=== PATIENT | female | born 1945 | race Caucasian/White ===

== ENCOUNTER 2019-07-12 06:18 | Inpatient (IN) ==
--- NOTE | 2019-06-21 12:55 | PAT Medication Instructions ---
Medication Instructions Date of Service June 21, 2019 Home Medications Glucosamine Chondroitin See Rx Instructions .ROUTE .COMPLEX Lutein See Rx Instructions Vitamin D3 500 mcg PO DAILY calcium carbonate-vitamin D3 [Calcium 600 + D(3)] 2 cap PO DAILY cyanocobalamin (vitamin B-12) [Vitamin B-12] 2,500 mcg SUBLINGUAL DAILY multivitamin 1 cap PO DAILY omeprazole 20 mg PO QAM STOP taking 2 weeks before surgery (or as soon as possible if surgery is within 2 weeks) Glucosamine Chondroitin See Rx Instructions .ROUTE .COMPLEX Lutein See Rx Instructions DO NOT take the morning of surgery Vitamin D3 500 mcg PO DAILY calcium carbonate-vitamin D3 [Calcium 600 + D(3)] 2 cap PO DAILY cyanocobalamin (vitamin B-12) [Vitamin B-12] 2,500 mcg SUBLINGUAL DAILY multivitamin 1 cap PO DAILY Take morning of surgery With a small sip of water, OTHERWISE NOTHING TO EAT OR DRINK AFTER MIDNIGHT: omeprazole 20 mg PO QAM Other Notes If you have any questions please call us at [phone] or [phone] or [phone] or [phone]
--- NOTE | 2019-06-21 12:59 | Anesthesiology Consultation ---
Date of Service June 21, 2019 Assessment & Plan (1) Encounter for pre-operative examination: - Patient requests: Patient prefers to go by "Yudith"/would respond better to this in the recovery period. Patient requests that she have a deeper sedation/does not hear anything during surgery if possible. Chart Review Chart Review: Pending: Refer to Additional Notes / Consult section (pending preop testing (labs, EKG, CXR)) and Patient seen in Pre Admission Testing Teaching & Discussion Pre-Anesthesia Teaching/Discussion Notes: Instructed NPO after midnight before surgery,except medications with 15 cc of water. Medication instructions provided according to the PAT guidelines. History Surgery Operation Date: 07/12/19 08:50 Proposed Procedures p Right Total Knee Arthroplasty - Bob Chan MD Height/Weight Height: 5 ft 1.5 in Weight: 80 kg Allergies Allergy/AdvReac Type Severity Reaction Status Date / Time NARCOTICS AdvReac Unknown DYSPEPSIA Uncoded 06/21/19 12:59 (WITH "STRONG" PAIN MEDICATIONS) Medications Home Medications Medication Instructions Recorded Confirmed Last Taken Glucosamine Chondroitin See Rx Instructions .ROUTE .COMPLEX 06/18/19 06/18/19 Unknown Lutein See Rx Instructions .ROUTE .COMPLEX 06/18/19 06/18/19 Unknown Vitamin D3 500 mcg PO DAILY 06/18/19 06/18/19 Unknown calcium carbonate-vitamin D3 2 cap PO DAILY 06/18/19 06/18/19 Unknown [Calcium 600 + D(3)] cyanocobalamin (vitamin B-12) 2,500 mcg SUBLINGUAL DAILY 06/18/19 06/18/19 Unknown [Vitamin B-12] multivitamin 1 cap PO DAILY 06/18/19 06/18/19 Unknown omeprazole 20 mg PO QAM 06/18/19 06/18/19 06/18/19 Past Medical History Medical History Crohn's disease s/p colectomy; current stoma Duodenal ulcer remote hx- reason for PPI History of blood transfusion post-op () History of kidney stones Obesity Osteoarthritis Exercise / Class Metabolic Activity III < 4 Walking/Shop/Light housework Past Family History Family History Aunt Family history of diabetes mellitus Past Surgical History Surgical History History of colonoscopy History of intestinal surgery HX ABSCESS- HAD SURGICAL RE-POSITIONING OF STOMA FROM RIGHT TO LEFT SIDE (CURRENTLY PRESENT ON LEFT SIDE) History of total colectomy TO ILEUM; OCCASIONAL PACKING NEEDED SINCE SURGERY DONE IN )-- SURGEON MADE AWARE History of urologic surgery 2/2 KIDNEY STONE Past Anesthesia History No Hx of Anesthesia Complications and No Family Hx of Anesthesia Complications History of PONV No Hx of PONV and No Hx of Motion Sickness Social History Smoking Status: Never smoker Do You Dip or Chew Tobacco: No Hx Alcohol Use: No substance use type: does not use Review of Systems Patient denies chest pain, shortness of breath, reflux, cough, wheezing, palpitations. Physical Exam Vital Signs VITALS BP 138/78 (manual on right) P 87 TEMP 98.0 SP02 97%RA RESP 16 PHYSICAL Full neck and c-spine range of motion. Full TMJ range of motion. TMD 3.5 finger breaths Mallampati Score 3 Dentition: upper front right "enamel wearing," missing sides/molars Lungs: clear throughout to auscultation Cardiac: regular rate and rhythm, no murmurs noted Spine: normal Carotid arteries: negative bruit Extremities: no edema
--- NOTE | 2019-06-21 13:57 | XRay Report ---
XR chest Pre-admission PA/Lat CLINICAL HISTORY: Preoperative chest COMPARISON STUDY: No previous studies for comparison. FINDINGS: The cardiac and mediastinal contours are normal. There is no evidence of focal pulmonary co nsolidation. There is no evidence of failure. No pleural effusions are visualized.[There is a promine nt left cardiophrenic angle fat pad IMPRESSION: No active disease in the chest. Electronically signed by: Patricio Gary M.D. 06/21/2019 1:55 PM
[2019-06-21 15:50] LABS: Basophils # (auto) 0.01 K/uL (0-0.2); Basophils % (auto) 0.1 %; Eosinophils # (auto) 0.03 K/uL (0-0.5); Eosinophils % (auto) 0.3 %; Hematocrit (blood only) 37.7 % (37-47); Hemoglobin 12.1 g/dL (12.0-16.0); Immature Granulocytes # (auto) 0.02 K/uL (0.00-0.02); Immature Granulocytes % (auto) 0.2 %; Lymphocytes # (auto) 2.05 K/uL (1.2-3.4); Lymphocytes % (auto) 22.7 %; Mean Corpuscular Hemoglobin 25.7 pg (25-34); Mean Corpuscular Hgb Conc 32.1 g/dL (32-36); Mean Corpuscular Volume 80.2 fL (80-100); Mean Platelet Volume 10.3 fL (7.4-10.4); Monocytes # (auto) 0.37 K/uL (0.11-0.59); Monocytes % (auto) 4.1 %; Neutrophils # (auto) 6.57 K/uL (1.4-6.5); Neutrophils % (auto) 72.6 %; Platelet Count 280 K/uL (130-400); RDW Coefficient of Variation 14.1 % (11.5-14.5); RDW Standard Deviation 40.9 fL (36.4-46.3); White Blood Count 9.05 K/uL (4.8-10.8)
[2019-06-21 15:58] LABS: BUN Creatinine Ratio 17.1 (10-20); Calcium 9.2 mg/dl (8.5-10.1); Creatinine Clr Calc Pharmacy 45.2 ml/min; Est GFR (African American) 58.7; Est GFR (Non-African American) 50.7; Potassium 3.6 mmol/L (3.5-5.1)
[2019-06-21 16:06] LABS: Partial Thromboplastin Ratio 1.1; Partial Thromboplastin Time 28.5 Seconds (21.0-31.0); Prothrombin Time 10.6 Seconds (9.0-12.0)
--- NOTE | 2019-07-06 19:42 | History and Physical Report ---
DATE OF ADMISSION: 07/12/2019 CHIEF COMPLAINT: Persistent right knee pain and discomfort. HISTORY OF PRESENT ILLNESS: The patient is a 73-year-old female who presents for surgical treatment of her right knee. She has got a long history of right knee pain and discomfort that has gradually gotten worse over time. This initially responded pretty well with conservative treatment including medicines and injections. This became less successful over time. She has got global pain. A little bit more medial than anywhere else, but some pain throughout. The more she walks, the more it hurts. She has difficulty going up and down steps. The shots only helped for a couple of weeks. She now would like to have her right knee replaced. PAST MEDICAL HISTORY: Includes: 1. Kidney stones. 2. Mild obesity with BMI of 33. 3. Unspecified colon abscess in the past with a colectomy and stoma placement without further problems. 4. Crohn's disease, status post colectomy. PAST SURGICAL HISTORY: Includes: 1. Total colectomy. 2. Kidney stone removal. ALLERGIES: PAIN MEDICINES, WHICH CAUSE NAUSEA. Not true allergies. CURRENT MEDICINES: Include: 1. Omeprazole once a day. 2. Restasis eye drops. SOCIAL HISTORY: A 73-year-old female. She is . Three children. Rare alcohol intake. No tobacco or drug use. FAMILY HISTORY: Noncontributory. REVIEW OF HISTORY: Negative for diabetes, neurologic problems, vascular problems or bleeding disorders. Does have a history of Crohn's disease and had a portion of her colon removed and she has got a stoma in place. No subsequent problems with infection. PHYSICAL EXAMINATION: GENERAL: Shows a pleasant, healthy, middle-aged female. She looks to be in pretty good health. HEENT: Benign. NECK: Supple, no lymphadenopathy. LUNGS: Clear to auscultation. HEART: Has a regular rate and rhythm. ABDOMEN: Soft, nontender, nondistended. EXTREMITIES: Grossly neurovascularly intact except as follows: Examination of the right knee reveals the patient walks independently. She does have a slight limp on her right side. She has got varus alignment to her knee. She is tender over the medial joint line. Small knee effusion. Range of motion is 5-125. There is no instability. No pain with hip motion. X-RAYS: X-ray of the right knee is reviewed. It shows advanced right knee medial compartment DJD. She has complete loss of medial joint space. She has subchondral sclerosis. She has got diffuse osteopenia. ASSESSMENT: A 73-year-old white female with advanced right knee degenerative joint disease, unresponsive to conservative care. She would like to have her knee replaced. She does seem to be osteopenic, likely related to her Crohn's disease and colectomy. PLAN: We are going to take her to the operating room and do right total knee replacement. The risks and benefits of this procedure were explained to the patient including but not limited to DVT, PE, , infection, neurological injury, vascular injury, bleeding problem, pain, limited range of motion, stiffness, failure to relieve her symptoms, incomplete relief of symptoms, need for further surgery in the future, fracture, leg length inequality, nerve palsy, dislocation, etc. The patient understands and desires to proceed. Informed consent was obtained. The patient has limited medicine intake due to her Crohn's disease. She can take half of Percocet at a time and we will try and stick to limited hydrocodone and Tylenol as much as possible. We will limit NSAIDs due to her GI issues. As far as discharge plans, she is planning to be discharged to home using [facility] home health program. Her daughter is going to stay with her.
[~2019-07-12 06:18] MED LIST: ACETAMINOPHEN 500 MG TAB PO SCH; BUPIVACAINE LIPOSOME/PF 266 MG, BUPIVACAINE/EPINEPHRINE 50 ML, SODIUM CHLORIDE 0.9% 30 ... INFIL SCH; CEFAZOLIN 2000MG 2,000 MG/15 ML SYR IV SCH; FAMOTIDINE 20 MG TAB PO SCH; GABAPENTIN 300 MG CAP PO SCH; LR 500ML BOLUS, THEN 15ML/HR IV SCH; LR 60ML/HR IV SCH; METOCLOPRAMIDE HCL 10 MG TABLET PO SCH
[2019-07-12] MEDS ORDERED: BUPIVACAINE 0.5 % 5 MG/1 ML PF 10ML VIAL ONE ×2 (06:27→06:28)
[2019-07-12] MEDS ORDERED: TRANEXAMIC ACID 1,000 MG **IV Intra-op IV SCH (06:30)
--- NOTE | 2019-07-12 06:56 | History & Physical Bridge Note ---
Date of Service July 12, 2019 History & Physical Bridge Note I have examined the patient, reviewed the History & Physical and in the interval since the performance of the History & Physical I have noted the following changes of clinical significance: no changes noted
[2019-07-12] MEDS ORDERED: MIDAZOLAM HCL 1 MG/ML 2ML VIAL ONE (07:32)
[2019-07-12] MEDS ORDERED: fentaNYL citrate 100 MCG/2 ML VIAL ONE (07:32)
[2019-07-12] MEDS ORDERED: ePHEDrine sulfate 50 MG/ML AMP IV PRN (07:54)
[2019-07-12] MEDS ORDERED: fentaNYL citrate 100 MCG/2 ML VIAL IV PRN (07:54)
[2019-07-12] MEDS ORDERED: ONDANSETRON INJ 2 MG/ML 2 ML VIAL IV PRN (07:54)
[2019-07-12] MEDS ORDERED: ATROPINE SULFATE 0.1 MG/ML 10ML SYR IV PRN (07:54)
[2019-07-12] MEDS ORDERED: BUPIVACAINE LIPOSOME 1.3% 266 MG/20 ML VIAL ONE (08:51)
[2019-07-12] MEDS ORDERED: BUPIVACAINE/EPINEPHRINE 0.25% 1:200,000 30 ML VIAL ONE (08:51)
[2019-07-12] MEDS ORDERED: BACITRACIN INJ 50,000 UNIT VIAL ONE (08:51)
[2019-07-12] MEDS ORDERED: SODIUM CHLORIDE 0.9% PF 50 ML VIAL ONE (08:51)
[2019-07-12] MEDS ORDERED: PROPOFOL IV EMULSION 10 MG/ML 20 ML VIAL IV ONE (10:41)
--- NOTE | 2019-07-12 10:44 | Post Operative Brief Note ---
PG Immediate Post Op with CF Date of Surgery July 12, 2019 Pre & Post Diagnosis Operation Date: 07/12/19 08:50 Pre-Op Diagnosis: Right Knee Advanced Degenerative Joint Disease Post-Op Diagnosis: Right Knee Advanced Degenerative Joint Disease Procedure Operation Date: 07/12/19 08:50 Actual Procedures p Right Total Knee Arthroplasty(Right) - Bob Chan MD Surgeon Bob Chan MD Crane Ladle Person Allison, PAC Estimated Blood Loss 50 Findings Consistent with Post-Op Diagnosis Fluids 1400 cc Specimens Specimen Description: A. Right Knee Bone and Tissue Drains Espinal Catheter (A 16 [place] espinal catheter was inserted by REY Hanley, without difficulty, clear yellow urine obtained, output to be monitored by Anesthesia.) Anesthesia Type Spinal MAC Complications none Disposition Accompanied Patient To Recovery: No Disposition: Recovery Room
--- NOTE | 2019-07-12 11:09 | XRay Report ---
TWO VIEWS RIGHT KNEE CLINICAL HISTORY: Postoperative examination. FINDINGS: AP and crosstable lateral portable views of the right knee are obtained. A right knee arthr oplasty is in near anatomic alignment. There has been undersurface remodeling of the patella. No acut e fracture is seen. There are expected postoperative changes around the knee including skin clips, so ft tissue edema, and subcutaneous gas. IMPRESSION: Expected postoperative changes status post right knee arthroplasty. No acute fracture is seen. Electronically signed by: Gunnar Dixon M.D. 07/12/2019 11:08 AM
--- NOTE | 2019-07-12 11:34 | Anesthesiology Progress Note ---
Date of Service July 12, 2019 Anesthesia Post Procedure Vital Signs Vital Signs: Temp Pulse Pulse Resp BP Pulse Ox 07/12/19 11:29 99.3 F 70 17 136/68 94 07/12/19 11:20 99.3 F 71 24 131/66 96 07/12/19 11:10 69 16 126/62 95 07/12/19 11:00 72 21 127/63 98 07/12/19 10:52 98.1 F 72 16 127/59 L 99 07/12/19 06:53 97.7 F 77 18 171/70 H 100 Transfer of Care Handoff Completed per policy Notes Mental Status: alert / awake / arousable and participated in evaluation Patient Amnestic to Procedure: Yes Nausea / Vomiting: adequately controlled Pain: adequately controlled Airway Patency, RR, SpO2: stable & adequate BP & HR: stable & adequate Hydration State: stable & adequate Neuraxial Anesthesia: was administered and sensory block is resolving Anesthetic Complications: no major complications apparent and Pt Satisfied with anesthetic care
[2019-07-12] MEDS ORDERED: METOCLOPRAMIDE HCL INJ 5 MG/ML 2 ML VIAL IV PRN (11:56)
[2019-07-12] MEDS ORDERED: TRAMADOL HCL 50 MG TABLET PO PRN (11:56)
[2019-07-12] MEDS ORDERED: MAGNESIUM HYDROXIDE SUSP 30 ML UDC PO PRN (11:56)
[2019-07-12] MEDS ORDERED: ALUMINUM/MAGNESIUM SUSP 30 ML UDC PO PRN (11:56)
[2019-07-12] MEDS ORDERED: GLUCOSAMINE CHONDROITIN SCH (11:56)
[2019-07-12] MEDS ORDERED: HYDROmorphone INJ 0.5 MG/0.5 ML SYR IV PRN (11:56)
[2019-07-12] MEDS ORDERED: bisacodyL 10 MG SUPP PR PRN (11:56)
[2019-07-12] MEDS ORDERED: LUTEIN SCH (11:56)
[2019-07-12] MEDS ORDERED: NALOXONE HCL 0.4 MG/1 ML VIAL/CARP IV PRN (11:56)
[2019-07-12] MEDS: KETOROLAC TROMETHAMINE 15 MG/ML VIAL IV SCH ×4 (13:24→23:40)
--- NOTE | 2019-07-12 13:27 | Progress Note ---
DATE: 07/12/2019 SUBJECTIVE: A 73-year-old white female postop from a right knee replacement. She is doing well. Just starting to get the sensation and function back in her legs. Her feet feel a little tingly. No pain. No chest pain or shortness of breath. Not feeling dizzy or lightheaded. OBJECTIVE: VITAL SIGNS: Temperature 36.4. Vital signs stable. GENERAL: Physical examination shows a pleasant, middle-aged female. She is sitting up in bed and talking to her daughter. She looks pretty comfortable. LUNGS: Clear to auscultation. HEART: Has a regular rate and rhythm. ABDOMEN: Soft, nontender, nondistended. EXTREMITIES: Grossly neurovascularly intact except as follows: Examination of the right lower extremity reveals the leg to be well aligned. Dressing is clean, dry and intact. She can just start to bend her toes a little bit. She has brisk refill and good distal pulse. X-RAYS: X-rays of the right knee from recovery room reviewed. It shows a cemented posterior stabilized total knee arthroplasty. Components look to be in good position. No signs of problems. It is a bit of an oblique film. ASSESSMENT: 73-year-old white female postop from right knee replacement, doing pretty well. Pain is controlled. She is just starting to get the function back in her legs. PLAN: 1. DVT prophylaxis including thigh-high TEDs, SCDs, and aspirin twice a day. 2. PT/OT. Weight bear as tolerated. Right total knee protocol. 3. Pain control, doing well with current pain regimen. 4. IV antibiotics x24 hours. 5. Disposition: Plan to discharge to home likely with some home health and her daughter's assistance once medically stable.
[2019-07-12] MEDS ORDERED: ACETAMINOPHEN 500 MG TAB PO SCH (14:00)
[2019-07-12] MEDS ORDERED: Nursing to Pharmacy Communication ONE (16:41)
[2019-07-12] MEDS ORDERED: TRANEXAMIC ACID 1,000 MG in 0.9 % SODIUM CHLORIDE 100 ML IV SCH (16:46)
[2019-07-12] MEDS: SODIUM CHLORIDE 0.9% 1000ML 1,000 ML IV SCH ×2 (16:53→21:59)
[2019-07-12] MEDS: ONDANSETRON INJ 2 MG/ML 2 ML VIAL IV PRN (17:02)
--- NOTE | 2019-07-12 17:21 | Operative Report ---
DATE OF OPERATION: 07/12/2019 SURGEON: Bob Chan MD NEON PUMPER: REY Stallings PREOPERATIVE DIAGNOSIS: Right knee degenerative joint disease. POSTOPERATIVE DIAGNOSIS: Right knee degenerative joint disease. PROCEDURE PERFORMED: Right cemented posterior stabilized total knee arthroplasty. COMPLICATIONS: None. ESTIMATED BLOOD LOSS: 50 mL. FLUID REPLACEMENT: 1400 mL crystalloid fluid replacement. TOURNIQUET TIME: 46 minutes at 300 mmHg. ANESTHESIA: Spinal with adductor canal block. DRAINS: None. SPECIMENS: Right knee sent for pathology. OPERATIVE INDICATIONS: The patient is a 73-year-old female who has had a several year history of increasing right knee pain and discomfort. She has been through extensive conservative treatment which became less successful over time. X-rays show advanced medial compartment arthritis. She elected to proceed with operative treatment. OPERATIVE FINDINGS: Operative findings revealed advanced right knee DJD with extensive grade 4 changes in the medial femoral condyle and medial tibial plateau. She had eburnation of the medial femoral condyle and anterior medial tibial plateau. She had varus deformity to her knee. Osteophytes in the medial compartment. The rest of the knee looked pretty well preserved for her age. OPERATIVE IMPLANTS: Operative implants consisted of: 1. Biomet Vanguard size 62.5 right posterior stabilized femoral component. 2. Biomet size 63 tibial tray. 3. A 12 mm posterior stabilized polyethylene insert. 4. A 28 x 8 all poly patella. OPERATIVE PROCEDURE: The patient was taken to the operating room, identified and placed on the operating table in supine position. All contact areas were appropriately padded. IV antibiotics were provided by anesthesia team. A Kim catheter was placed in sterile fashion. Right thigh tourniquet was then placed and the right lower extremity was then prepped and draped in usual sterile fashion. The right leg was elevated and exsanguinated with an Esmarch and tourniquet was placed at 300 mmHg. An anterior approach of the right knee was then performed through a longitudinal incision centered over the patella. Sharp dissection was carried through subcutaneous tissues down to the level of the extensor mechanism. Medial parapatellar arthrotomy incision was made. Some subperiosteal dissection was carried out medially. The fat pad resected from beneath the patellar tendon. The lateral patellofemoral ligament was released. The patella was everted and knee was flexed. The osteophytes were taken off the distal femur. The ACL and PCL were then released from the distal femur and the tibia subluxated anteriorly. External tibial alignment jig was then placed in the anterior face of the tibia and adjusted 14 mm medially. Proximal tibial cut was made to remove about 2 mm of bone from most deficient aspect of the medial tibial plateau. The tibia was then sized to a size 63. Some osteophytes were taken off medial and posteromedially. Attention was then drawn to the femur. The distal femur was entered with a sharp drill. Intramedullary canal was suctioned. A right 5-degree valgus cutting guide was placed. Distal femoral cutting block was pinned in place. Distal femoral cut was made to take an additional 3 mm of bone off distal femur. Femur was then sized to a size 62.5. We did downsize this slightly. The AP cutting block was pinned parallel to the epicondylar axis, which was 4 degrees of external rotation. The anterior cut, anterior chamfer cut, posterior cut, posterior chamfer cuts were made. Box cutting guide was placed and adjusted slightly lateral and the box cut was made. The knee was flexed. The remnants of the medial and lateral menisci were excised. The osteophytes were taken off the posterior aspect of the femur. Trial femoral component was placed. Tibial tray was pinned in maximum external rotation and the drill and stem punch were used to create defect in proximal tibia for the tibial tray. The knee was then trialed and the 12 mm insert fit most appropriately. Attention was then drawn to the patella. The patella was cleaned of all soft tissues. Patella thickness measured 20 mm in thickness, it was cut down to 13. It was sized to a size 28 patella. Lug holes were drilled for a 28 patella. Lateral osteophyte was removed. Patella button was placed. Knee was taken through range of motion, patella tracked nicely with no thumbs test. Attention was then drawn toward placement of permanent components. All trial components were removed. A bone plug was placed in the distal femur to limit blood loss. A double batch of Palacos G cement was mixed. Biomet Vanguard size 62.5 right posterior stabilized femoral component, size 63 tibial tray, 12 mm posterior stabilized polyethylene insert, and a 28 x 8 all poly patella then cemented in place. Knee was brought out into full extension until cement hardened. A final cement check was then performed. Pericapsular tissues were injected with a total of 100 mL of combination of 20 mL of Exparel, 30 mL of normal saline, 50 mL of 0.25% Marcaine with epinephrine. The patient did receive 1 gram of tranexamic acid. The tourniquet was then let down for final tourniquet time 46 minutes. Hemostasis was assured with use of electrocautery. The extensor mechanism was then closed with combination of #1 PDS suture and #1 Vicryl suture in a [id number] fashion. Extensor mechanism was checked and found to be intact. The subcutaneous tissue was then closed with #2 Dexon suture in a buried interrupted fashion. Skin was closed with skin lucy. Leg was then cleaned, dried and a sterile dressing of Xeroform, 4 x 4, sterile cast padding and Jose bandage were applied. The patient then transferred to the recovery room in stable condition. The patient tolerated the procedure well with no complications. All needle and sponge counts were correct at the end of the operation. I attest to the content of the Intraoperative Record and any orders documented therein. Any exception s are noted below.
[2019-07-12] MEDS: ASCORBIC ACID 500 MG TAB PO SCH (18:45)
[2019-07-12] MEDS: FERROUS GLUCONATE 324 MG TAB PO SCH (18:45)
[2019-07-12] MEDS: ACETAMINOPHEN SOLN 500 MG/15.62 ML UDP PO SCH (18:46)
[2019-07-12] MEDS: CEFAZOLIN 2000MG 2,000 MG/15 ML SYR IV SCH ×2 (19:00→23:40)
[2019-07-12] MEDS ORDERED: ASPIRIN 81 MG ECTAB PO SCH (21:00)
[2019-07-12] MEDS: ASPIRIN 81 MG CHEW PO SCH (21:56)
[2019-07-12] MEDS: DOCUSATE SODIUM 100 MG CAP PO SCH (21:57)
[2019-07-12] MEDS: SENNA 8.6 MG TAB PO SCH (21:57)
[2019-07-13] MEDS: KETOROLAC TROMETHAMINE 15 MG/ML VIAL IV SCH ×3 (05:20→17:59)
[2019-07-13] MEDS: ACETAMINOPHEN SOLN 500 MG/15.62 ML UDP PO SCH ×3 (05:21→21:12)
[2019-07-13 06:29] LABS: Hematocrit (blood only) 30.7 % (37-47); Mean Corpuscular Hgb Conc 32.6 g/dL (32-36); Mean Corpuscular Volume 79.7 fL (80-100); Mean Platelet Volume 9.7 fL (7.4-10.4); Platelet Count 193 K/uL (130-400); RDW Coefficient of Variation 14.4 % (11.5-14.5); RDW Standard Deviation 41.2 fL (36.4-46.3); Red Blood Count 3.85 M/uL (4.2-5.4); White Blood Count 8.26 K/uL (4.8-10.8)
[2019-07-13 06:52] LABS: BUN Creatinine Ratio 13.3 (10-20); Calcium 8.1 mg/dl (8.5-10.1); Creatinine Clr Calc Pharmacy 54.8 ml/min; Est GFR (Non-African American) 64.7; Potassium 3.2 mmol/L (3.5-5.1)
--- NOTE | 2019-07-13 07:35 | Progress Note ---
DATE: 07/13/2019 SUBJECTIVE: A 73-year-old white female postop day 1 from right knee replacement. She is doing pretty well. Had a pretty good night. Pain seems to be controlled. No chest pain or shortness of breath. Not feeling dizzy or lightheaded. PHYSICAL EXAMINATION: GENERAL: Shows a pleasant, middle-aged female. She is sitting up in bed and doing heel prop. Looks reasonably comfortable. EXTREMITIES: Examination of the right leg reveals the dressing to be clean, dry and intact. She can dorsiflex and plantarflex her foot appropriately. She is neurologically intact. LABORATORY DATA: Hemoglobin 10.0. Hematocrit 30.7. Electrolytes are stable. Potassium is just slightly low. ASSESSMENT: A 73-year-old white female postoperative day 1 from a right knee replacement, doing pretty well. Pain is controlled. She is neurologically intact. She is anemic, but without symptoms. Potassium is little low and we will supplement that. PLAN: 1. DVT prophylaxis including thigh-high TEDs, SCDs, and aspirin twice a day. 2. PT/OT. Weight bear as tolerated. Right total knee protocol. 3. Pain control, doing well with current pain regimen. 4. Hypokalemia. We will supplement her potassium. 5. Anemia. Continue iron supplementation. She is asymptomatic and unlikely to have any true blood issues and need for transfusion. Only treat if symptomatic. 6. Disposition: Plan to discharge her home with some home health and her daughter's assistance once stable.
[2019-07-13] MEDS ORDERED: POTASSIUM CHLORIDE 20 MEQ TABCR PO ONE ×2 (08:00→19:00)
[2019-07-13] MEDS: ASPIRIN 81 MG CHEW PO SCH ×2 (08:00→21:12)
[2019-07-13] MEDS: CHOLECALCIFEROL 1,000 UNITS TAB PO SCH (08:01)
[2019-07-13] MEDS: CALCIUM 600MG + VIT D 400 IU TAB PO SCH (08:01)
[2019-07-13] MEDS: FERROUS GLUCONATE 324 MG TAB PO SCH ×2 (08:01→16:11)
[2019-07-13] MEDS: FLINTSTONES COMPLETE CHEWABLE TAB PO SCH (08:02)
[2019-07-13] MEDS: CYANOCOBALAMIN (VITAMIN B-12) 2,500 MCG TAB.SUBL SL SCH (08:02)
[2019-07-13] MEDS: ASCORBIC ACID 500 MG TAB PO SCH ×2 (08:02→16:11)
[2019-07-13] MEDS: PANTOprazole 40 MG TAB PO SCH (08:02)
[2019-07-13] MEDS: DOCUSATE SODIUM 100 MG CAP PO SCH ×2 (08:02→16:10)
[2019-07-13] MEDS ORDERED: MULTIVITAMIN TAB PO SCH (09:00)
[2019-07-13] MEDS ORDERED: NON-FORMULARY MEDICATION (Multivitamin 1 CAP) PO SCH (09:00)
[2019-07-13] MEDS: SENNA 8.6 MG TAB PO SCH (16:10)
[2019-07-14] MEDS: KETOROLAC TROMETHAMINE 15 MG/ML VIAL IV SCH ×2 (00:33→05:53)
[2019-07-14 05:33] LABS: BUN Creatinine Ratio 13.6 (10-20); Calcium 9.4 mg/dl (8.5-10.1); Creatinine Clr Calc Pharmacy 50.3 ml/min; Est GFR (African American) 67.6; Est GFR (Non-African American) 58.3; Potassium 3.6 mmol/L (3.5-5.1)
[2019-07-14] MEDS: ONDANSETRON INJ 2 MG/ML 2 ML VIAL IV PRN (05:53)
[2019-07-14] MEDS: ACETAMINOPHEN SOLN 500 MG/15.62 ML UDP PO SCH (05:54)
[2019-07-14] MEDS: FLINTSTONES COMPLETE CHEWABLE TAB PO SCH (07:42)
[2019-07-14] MEDS: FERROUS GLUCONATE 324 MG TAB PO SCH (07:42)
[2019-07-14] MEDS: CHOLECALCIFEROL 1,000 UNITS TAB PO SCH (07:42)
[2019-07-14] MEDS: DOCUSATE SODIUM 100 MG CAP PO SCH (07:42)
[2019-07-14] MEDS: ASPIRIN 81 MG CHEW PO SCH (07:43)
[2019-07-14] MEDS: ASCORBIC ACID 500 MG TAB PO SCH (07:43)
[2019-07-14] MEDS: PANTOprazole 40 MG TAB PO SCH (07:43)
[2019-07-14] MEDS: CALCIUM 600MG + VIT D 400 IU TAB PO SCH (07:43)
[2019-07-14] MEDS: CYANOCOBALAMIN (VITAMIN B-12) 2,500 MCG TAB.SUBL SL SCH (07:43)
--- NOTE | 2019-07-14 08:16 | Progress Note ---
DATE: 07/14/2019 SUBJECTIVE: A 73-year-old white female postop day 2 from right knee replacement. She is doing okay. Pain has been reasonably well controlled. Having some mild intermittent nausea. No chest pain or shortness of breath. Not feeling dizzy or lightheaded. OBJECTIVE: VITAL SIGNS: Temperature 36.7. Vital signs stable. GENERAL: Physical examination shows a pleasant, middle-aged female. She is sitting up in bed, looks reasonably comfortable. EXTREMITIES: Examination of the right leg reveals the leg to be well aligned. Dressing is clean, dry and intact. She can do a pretty good straight leg raise. Calf is soft and supple. She is neurologically intact. LABORATORIES: Electrolytes are improved. Potassium is improved at 3.6. Other electrolytes are stable. ASSESSMENT: A 73-year-old white female postoperative day 2 from right knee replacement, doing reasonably well. Pain control could be a little bit of an issue as she is easily nauseated and cannot take pills well for absorption due to her colostomy/ileostomy. PLAN: 1. DVT prophylaxis including thigh-high TEDs, SCDs, and we will continue to use an aspirin twice a day. 2. PT/OT. She can weight bear as tolerated and right total knee protocol. 3. Pain control, doing okay with current pain regimen. We are going to sort out what we can get her orally and we will give her some nausea medicine to control nausea. 4. Disposition: Plan to discharge her home with some home health later today.
--- NOTE | 2019-07-20 03:16 | Discharge Summary ---
ADMITTING PHYSICIAN AND SURGEON: Dr. Bob Chan. ADMITTING DIAGNOSIS: Right knee degenerative joint disease. SURGERY PERFORMED: Right total knee arthroplasty. SECONDARY DIAGNOSES: Kidney stones, mild obesity, unspecified colon abscess, history of colectomy, Crohn's disease. CONSULTS: None obtained. HISTORY AND PHYSICAL EXAMINATION: Well documented in the patient's chart. HOSPITAL COURSE: The patient was admitted on 07/12/2019, underwent total knee arthroplasty, tolerated the procedure well. There were no complications. She was transferred to the PACU postoperatively and later to the orthopedic floor for further care. She was given Ancef for antibiotic prophylaxis, GRICEL stockings, SCDs and aspirin for DVT prophylaxis. Hemoglobin, hematocrit and vital signs were monitored during her hospital stay and remained stable. She developed some postoperative anemia, did not require any blood transfusions. There were no complications. By postoperative day 2, she was tolerating a regular diet, pain was controlled with oral pain medicine. She was participating in physical therapy. Postop day 2, she was discharged home, set up with home health services. She was given printed discharge instruction as well as new prescriptions for extra-strength Tylenol, aspirin, iron supplement and Dilaudid. Continue her home medicines. Continue physical therapy, weightbearing as tolerated, GRICEL stockings. Follow up in 2 weeks postop or sooner if there are any problems or concerns.
== END 2019-07-14 10:58 | disposition home health service (06) | DRG 470 ==
LOC: ASU 06:18 → 3E 10:49